=== PATIENT | male | born 1975 | race African-American/Black ===

== ENCOUNTER 2017-11-13 10:25 | Emergency (ER) | payer SELFPAY ==
[2017-11-13] MEDS ORDERED: Ibuprofen 200 MG TAB ONE (11:42)
[2017-11-13] MEDS ORDERED: HYDROcodone/Acetaminophen 10/325 mg Tablet ONE (14:05)
--- NOTE | 2017-11-13 14:16 | RAD ---
LEFT WRIST THREE VIEWS: History: 42-year-old male with history of left wrist injury three days ago with increased pain. FINDINGS: No fracture, dislocation, or other significant acute osseous abnormality. IMPRESSION: Unremarkable left wrist. Mild degenerative changes without fracture or dislocation. POS: POLLY
== END 2017-11-13 14:28 | disposition home or self-care (01) ==
LOC: ERS 10:25
DX: S63.502A Unspecified sprain of left wrist, initial encounter (principal); I10 Essential (primary) hypertension; F17.210 Nicotine dependence, cigarettes, uncomplicated; X50.1XXA Overexertion from prolonged static or awkward postures, initial encounter
CPT/HCPCS: 99406

== ENCOUNTER 2018-04-04 11:46 | Emergency (ER) | payer SELFPAY ==
[~2018-04-04 11:46] MED LIST: ISOVUE-370 76%-LOCM 1 ML ONE
[2018-04-04 13:12] LABS: #Basophils 0.1 thou/uL (0.0-0.2); #Eosinphils 0.1 thou/uL (0.0-0.7); #Lymphocytes 2.3 thou/uL (1.20-3.40); #Monocytes 0.9 thou/uL (0.11-0.59); #Neutrophils 7.4 thou/uL (1.40-6.50); %Basophils 0.5 % (0.0-1.0); %Eosinophils 1.4 % (0.0-10.0); %Lymphocytes 21.1 % (21.0-51.0); %Monocytes 8.2 % (0.0-10.0); %Neutrophils 68.8 % (42.0-75.0); Hemoglobin 13.2 g/dL (14.0-18.0); Mean Corpuscular HGB CONC 34.2 g/dL (32.0-36.0); Mean Platelet Volume 11.7 fL (7.4-10.4); Platelet Count 91 thou/uL (130-400); RBC Distribution Width 15.4 % (11.5-14.5); Red Blood Cell (RBC) Count 3.49 mill/uL (4.70-6.10); White Blood Cell (WBC) Count 10.8 thou/uL (4.8-10.8)
[2018-04-04] MEDS ORDERED: Adacel (T-DAP) 0.5 ML VIAL ONE (13:25)
[2018-04-04 13:30] LABS: ALT (SGPT) 11 U/L (8-55); AST (SGOT) 20 U/L (5-34); Albumin 4.2 g/dL (3.5-5.0); Alkaline Phosphatase 69 U/L (40-150); Anion Gap 15 mmol/L (10-20); BUN (Urea Nitrogen) 7 mg/dL (8.9-20.6); Bilirubin, Total 0.9 mg/dL (0.2-1.2); Calc. Creatinine Clearance 0 mL/min (70-130); Carbon Dioxide 21 mmol/L (22-29); Chloride 108 mmol/L (98-107); Estimated GFR-MDRD Greater than 90; Glucose 95 mg/dL (70-105); Potassium 3.7 mmol/L (3.5-5.1); Protein, Total 7.2 g/dL (6.0-8.3); Sodium 140 mmol/L (136-145)
--- NOTE | 2018-04-04 13:59 | CT ---
CONTRAST ENHANCED CT OF FACIAL BONES: History: 42-year-old male with abscess, eye swelling for two days. Technique: Axial images were obtained with coronal and sagittal reconstructions after administration of IV contrast. FINDINGS: Images demonstrate an area of septation with central area of necrosis compatible with an abscess in t he medial right canthus appearing to involve the right lacrimal duct and lacrimal sac. The lesion has areas of septation within it. Maximal 3D measurements measure approximately 2.6 x 1.7 x 1.8 cm. No d efinite evidence of retro orbital extension is seen into the right orbit. The lesion medial and infer ior to the rectus muscle. The paranasal sinuses are otherwise unremarkable except for some minimal ethmoid and sphenoid mucosal thickening. There is obvious right to left nasal septal deviation. IMPRESSION: Medial right canthal orbital septated lesion, most compatible with an abscess extending into the righ t lacrimal sac and nasal lacrimal duct. POS: C
== END 2018-04-04 14:16 | disposition home or self-care (01) ==
LOC: ERS 11:46
DX: H05.011 Cellulitis of right orbit (principal); I10 Essential (primary) hypertension; F17.210 Nicotine dependence, cigarettes, uncomplicated; Z71.6 Tobacco abuse counseling; Z23 Encounter for immunization
CPT/HCPCS: 36415; 70487; 80053; 83605; 85025; 87040; 90471; 90715; 96365; 99406